=== PATIENT | female | born 1950 | race Caucasian/White ===

== ENCOUNTER → 2016-07-07 | Outpatient (CLI) | payer MEDICARE | LOC: WI 13:12 | PROVIDERS: ATTEND Physician Assistant | DX: Z12.31 Encounter for screening mammogram for malignant neoplasm of breast (principal); Z78.0 Asymptomatic menopausal state | CPT/HCPCS: 77080; G0202; 77067 ==

== ENCOUNTER → 2016-11-08 | Outpatient (CLI) | payer MEDICARE ==
--- NOTE | 2016-11-08 14:13 | RADIOLOGY REPORT (SQ) ---
EXAM DESCRIPTION: MRI LUMBAR SPINE WITHOUT COMPLETED DATE/TIME: 11/08/2016 1:27 pm REASON FOR STUDY: CHRONIC BILATERAL LOW BACK PAIN W/O SCIATICA (M54.5) M54.5 LOW BACK PAIN COMPARISON: None. TECHNIQUE: Sagittal and Axial imaging includes T1, T2, STIR and gradient echo sequences. Coronal T2/ HASTE imaging. LIMITATIONS: None. FINDINGS: VISUALIZED UPPER ABDOMEN: Limited evaluation. No acute or suspicious findings suggested. SEGMENTATION: No transitional anatomy. The lowest well-developed disc space is labeled L5-S1. ALIGNMENT: Anatomic. VERTEBRAE: Intact. BONE MARROW: Normal. No marrow replacement or reactive changes. DISC SIGNAL: Desiccation L4-5. POSTERIOR ELEMENTS: Intact. HARDWARE: None in the spine. CORD AND CONUS: Normal in size and signal intensity. Conus at the appropriate level. SOFT TISSUES: No aortic aneurysm seen. No bulky retroperitoneal adenopathy or mass. No paraspinal mas s or fluid. L1-L2: No significant spinal stenosis or exit foraminal stenosis. L2-L3: No significant spinal stenosis or exit foraminal stenosis. L3-L4: Facet arthropathy. No significant spinal stenosis or exit foraminal stenosis. L4-L5: Central annular fissure. Facet arthropathy. No significant spinal stenosis or exit foraminal stenosis. L5-S1: No significant spinal stenosis or exit foraminal stenosis. LOWER THORACIC: Incompletely imaged. No stenosis seen. SACRUM: Visualized upper sacrum intact. OTHER: No other significant findings. IMPRESSION: Facet arthropathy. Annular fissure L4-5. TECHNICAL DOCUMENTATION: JOB ID: [id number] [employer]- All Rights Reserved
== END ==
LOC: RAD 12:34
PROVIDERS: ATTEND Physician Assistant
DX: M54.5 Low back pain (principal)
CPT/HCPCS: 72148

== ENCOUNTER 2017-03-18 13:07 | Emergency (ER) | payer MEDICARE ==
[2017-03-18] MEDS ORDERED: LORAZEPAM INJ 2 MG/1 ML VIAL IV ONE (13:52)
[2017-03-18 14:11] LABS: ABSOLUTE BASOPHILS # (AUTO) 0.1 10^3/uL (0.0-0.2); ABSOLUTE EOSINOPHILS # (AUTO) 0.1 10^3/uL (0.0-0.6); ABSOLUTE LYMPHOCYTES (AUTO) 1.4 10^3/uL (0.5-4.7); ABSOLUTE MONOCYTES (AUTO) 0.7 10^3/uL (0.1-1.4); ABSOLUTE NEUT (AUTO) 8.8 10^3/uL (1.7-8.2); BASOPHILS % (AUTO) 0.8 % (0-2); HEMATOCRIT 40.9 % (36.0-47.0); HEMOGLOBIN 13.9 g/dL (12.0-15.5); HGB HCT DIFFERENCE 0.8; LYMPHOCYTES % (AUTO) 12.6 % (13-45); MEAN CORPUSCULAR HEMOGLOBIN 33.4 pg (27.0-33.4); MEAN CORPUSCULAR HGB CONC 34.1 g/dL (32.0-36.0); MEAN CORPUSCULAR VOLUME 98 fl (80-97); MONOCYTES % (AUTO) 6.5 % (3-13); RED BLOOD COUNT 4.18 10^6/uL (3.72-5.28); SEGMENTED NEUTROPHILS % (AUTO) 79.1 % (42-78); WHITE BLOOD COUNT 11.1 10^3/uL (4.0-10.5)
[2017-03-18 14:44] LABS: ALANINE AMINOTRANSFERASE 15 U/L (9-52); ALKALINE PHOSPHATASE 73 U/L (38-126); ANION GAP 9 (5-19); ASPARTATE AMINO TRANSFERASE 22 U/L (14-36); BILIRUBIN,DIRECT 0.4 mg/dL (0.0-0.4); BILIRUBIN,TOTAL 0.4 mg/dL (0.2-1.3); BLOOD UREA NITROGEN 12 mg/dL (7-20); CALCIUM 9.9 mg/dL (8.4-10.2); CARBON DIOXIDE 29 mmol/L (22-30); CHLORIDE 103 mmol/L (98-107); CREATININE RESULT 0.95 mg/dL (0.52-1.25); GLUCOSE 102 mg/dL (75-110); POTASSIUM 3.9 mmol/L (3.6-5.0); SODIUM 140.9 mmol/L (137-145); TOTAL PROTEIN 6.7 g/dL (6.3-8.2)
--- NOTE | 2017-03-18 15:44 | XCELERA REPORT ---
[address] [address] Lower Extremity Venous Evaluation Name: ELVIN DIAS Age: 66 yrs Gender: Female : 1950 Patient Status: Emergency Patient Location: ER Study Date: 03/18/2017 02:07 PM Procedure: Color flow and duplex imaging bilaterally of the veins of the lower extremities as well as the Common Femoral veins. Reason For Study: lower extremity pain Ordering Physician: FAZAL PAT Performed By: Rox Kaur Right Sided Venous Evaluation Normal vessel filling wall to wall, compression and augmentation as well as Colour flow down to the infrageniculate veins. Left Sided Venous Evaluation Normal vessel filling wall to wall, compression and augmentation as well as Colour flow down to the infrageniculate veins. Interpretation Summary No duplex evidence of DVT or obstruction in the bilateral lower extremities. : FAZAL PAT > Adolph Srivastava
--- NOTE | 2017-03-18 16:04 | RADIOLOGY REPORT (SQ) ---
EXAM DESCRIPTION: CTA CHEST COMPLETED DATE/TIME: 03/18/2017 3:36 pm REASON FOR STUDY: sob R60.0 LOCALIZED EDEMA COMPARISON: None. TECHNIQUE: CT scan of the chest performed using helical scanning technique with dynamic intravenous contrast injection. Images reviewed with lung, soft tissue and bone windows. Reconstructed coronal and sagittal MPR images reviewed. Additional 3 dimensional post-processing performed to develop Maximal Intensity Projection images (ID P). All images stored on PACS. All CT scanners at this facility use dose modulation, iterative reconstruction, and/or weight based d osing when appropriate to reduce radiation dose to as low as reasonably achievable (ALARA). [facility]: Dose Right [facility]: CareDose [facility]: Dose Right [facility]: Teradose 4D [facility]: H[place] CONTRAST TYPE AND DOSE: contrast/concentration: Isovue 370.00 mg/ml; Total Contrast Delivered: 83.3 ml; Total Saline Delivered: 65.0 ml Contrast bolus adequate for pulmonary arteries and aorta. RENAL FUNCTION: Creatinine 0.95 RADIATION DOSE: CT Rad equipment meets quality standard of care and radiation dose reduction techniq ues were employed. CTDIvol: 9.9 - 22.0 mGy. DLP: 766 mGy-cm. . LIMITATIONS: None. FINDINGS: LUNGS AND PLEURA: Obstructive lung disease with enlarged airspaces. No acute infiltrates. No pleural effusion. No pneumothorax. No worrisome pulmonary nodules. AORTA AND GREAT VESSELS: No aneurysm. Contrast bolus not optimized for the aorta. HEART: No pericardial effusion. No significant coronary artery calcifications. PULMONARY ARTERIES: No emboli visualized in the main pulmonary arteries or the segmental branches. HILAR AND MEDIASTINAL STRUCTURES: No identified masses or abnormal nodes. HARDWARE: None in the chest. UPPER ABDOMEN: No significant findings. Limited exam. THYROID AND OTHER SOFT TISSUES: No masses. No adenopathy. BONES: No acute or significant finding. 3D MIPS: Confirm above findings. OTHER: No other significant finding. IMPRESSION: No CT angio evidence of acute pulmonary emboli or thoracic aortic dissection. Obstructive lung disease COMMENT: Quality ID # [id number]: Final reports with documentation of one or more dose reduction techniques (e.g., Automated exposure control, adjustment of the mA and/or kV according to patient size, use of iterative reconstruction technique) TECHNICAL DOCUMENTATION: JOB ID: [id number] [employer]- All Rights Reserved
--- NOTE | 2017-03-18 16:30 | ER Document Report ---
ED General - General Chief Complaint: Chest Pain Time Seen by Provider: 03/18/17 13:32 Mode of Arrival: Wheelchair Information source: Patient Notes: 66-year-old female history of anxiety who has had leg swelling and cramping presents with complaints of sudden shortness of breath and chest pain. Patient noted to be hyperventilating while she is waiting to have outpatient ultrasound performed. Patient was brought back to the emergency department for evaluation Patient denies any actual chest pain meds that she is quite anxious did not bring her [employer] TRAVEL OUTSIDE OF THE [place] IN LAST 30 DAYS: No - HPI Onset: Just prior to arrival Onset/Duration: Sudden Quality of pain: No pain Severity: Mild Pain Level: 1 Associated symptoms: Shortness of breath Exacerbated by: Denies Relieved by: Denies Similar symptoms previously: No Recently seen / treated by doctor: Yes - Related Data Allergies/Adverse Reactions: aspirin [Aspirin] Allergy (Severe, Verified 12/31/13 11:30) UNCONTROLLED MUSCLE SPASMS, NIGHTMARES adenosine [Adenosine] Allergy (Verified 12/31/13 11:30) Respiratory arrest Past Medical History - Social History Smoking Status: Current Every Day Smoker Cigarette use (# per day): Yes Chew tobacco use (# tins/day): No Smoking Education Provided: No Frequency of alcohol use: None Drug Abuse: None Family History: Reviewed & Not Pertinent Patient has suicidal ideation: No Patient has homicidal ideation: No - Past Medical History Cardiac Medical History: Denies: Hx Coronary Artery Disease, Hx Heart Attack, Hx Hypertension - UNDER CONTROL, NO LONGER ON MEDICATION Pulmonary Medical History: Reports: Hx Pneumonia - 10 YRS AGO Denies: Hx Asthma, Hx Bronchitis, Hx COPD Neurological Medical History: Denies: Hx Cerebrovascular Accident - PATIENT UNSURE, MRI POSSIBLY SHOWING MINI STROKES, Hx Seizures Endocrine Medical History: Reports: Hx Diabetes Mellitus Type 2 Renal/ Medical History: Denies: Hx Peritoneal Dialysis GI Medical History: Reports: Hx Gastroesophageal Reflux Disease Musculoskeltal Medical History: Reports Hx Arthritis - KNEES, MUCH IMPROVED WITH WEIGHT LOSS Psychiatric Medical History: Reports: Hx Depression Past Surgical History: Reports: Hx Hysterectomy, Hx Nose Surgery. Denies: Hx Pacemaker - Immunizations Hx Diphtheria, Pertussis, Tetanus Vaccination: Yes Hx Pneumococcal Vaccination: 03/28/11 Review of Systems - Review of Systems Notes: REVIEW OF SYSTEMS: CONSTITUTIONAL : Denies fever, chills, or sweats. Denies recent illness. EENT: Denies eye, ear, throat, or mouth pain or symptoms. Denies nasal or sinus congestion or discharge. Denies throat, tongue, or mouth swelling or difficulty swallowing. CARDIOVASCULAR: Denies chest pain. Denies palpitations or racing or irregular heart beat. Denies ankle edema. RESPIRATORY: Admits shortness of breath GASTROINTESTINAL: Denies abdominal pain or distention. Denies nausea, vomiting , or diarrhea. Denies blood in vomitus, stools, or per rectum. Denies black, tarry stools. Denies constipation. GENITOURINARY: Denies difficulty urinating, painful urination, burning, frequency, blood in urine, or discharge. FEMALE GENITOURINARY: Denies vaginal bleeding, heavy or abnormal periods, irregular periods. Denies vaginal discharge or odor. MUSCULOSKELETAL: Denies back or neck pain or stiffness. Denies joint pain or swelling. SKIN: Denies rash, lesions or sores. HEMATOLOGIC : Denies easy bruising or bleeding. LYMPHATIC: Denies swollen, enlarged glands. NEUROLOGICAL: Denies confusion or altered mental status. Denies passing out or loss of consciousness. Denies dizziness or lightheadedness. Denies headache. Denies weakness or paralysis or loss of use of either side. Denies problems with gait or speech. Denies sensory loss, numbness, or tingling. Denies seizures. PSYCHIATRIC: Denies anxiety or stress. Denies depression, suicidal ideation, or homicidal ideation. ALL OTHER SYSTEMS REVIEWED AND NEGATIVE. PHYSICAL EXAMINATION: GENERAL: Well-appearing, well-nourished and in no acute distress. HEAD: Atraumatic, normocephalic. EYES: Pupils equal round and reactive to light, extraocular movements intact, conjunctiva are normal. ENT: Nares patent, oropharynx clear without exudates. Moist mucous membranes. NECK: Normal range of motion, supple without lymphadenopathy LUNGS: Breath sounds clear to auscultation bilaterally and equal. No wheezes rales or rhonchi. HEART: Regular rate and rhythm without murmurs ABDOMEN: Soft, nontender, nondistended abdomen. No guarding, no rebound. No masses appreciated. Female : deferred Musculoskeletal: Normal range of motion, no pitting or edema. No cyanosis. NEUROLOGICAL: Cranial nerves grossly intact. Normal speech, normal gait. Normal sensory, motor exams PSYCH: N very anxious SKIN: Warm, Dry, normal turgor, no rashes or lesions noted. Dictation was performed using [employer] voice recognition software Physical Exam - Vital signs Vitals: Resp 22 H 03/18/17 13:32 Course - Re-evaluation Re-evalutation: 03/18/17 16:29 Patient's presentation is consistent with a panic attack, she was given medication and symptoms completely resolved. She states she feels much better, nonetheless Doppler was performed as well as a CTA of the chest and both were negative. I do not believe there is any life-threatening issues I had a long discussion with the patient multiple times and she feels much better wishes to be discharged home very strict return precautions have been provided and I discussed this with family as well After performing a Medical Screening Examination, I estimate there is LOW risk for RUPTURED ESOPHAGUS, PNEUMOTHORAX, PULMONARY EMBOLISM, ACUTE CORONARY SYNDROME, OR THORACIC AORTIC DISSECTION, thus I consider the discharge disposition reasonable. I have reevaluated this patient multiple times and no significant life threatening changes are noted. The patient and I have discussed the diagnosis and risks, and we agree with discharging home with close follow-up. We also discussed returning to the Emergency Department immediately if new or worsening symptoms occur. We have discussed the symptoms which are most concerning (e.g., bloody sputum, worsening pain or shortness of breath) that necessitate immediate return. - Vital Signs Vital signs: Temp Pulse Resp BP Pulse Ox 98.2 F 21 H 118/58 L 96 03/18/17 13:35 03/18/17 13:35 03/18/17 13:35 03/18/17 13:35 - Laboratory Result Diagrams: 03/18/17 13:35 03/18/17 13:35 Laboratory results interpreted by me: 03/18/17 03/18/17 13:35 13:35 WBC 11.1 H MCV 98 H RDW 15.0 H Seg Neutrophils % 79.1 H Lymphocytes % 12.6 L Absolute Neutrophils 8.8 H Est GFR (Non-Af Amer) 59 L - Diagnostic Test Radiology reviewed: Image reviewed, Reports reviewed Discharge - Discharge Clinical Impression: Panic attack, Peripheral edema Leg pain Qualifiers: Laterality: left Qualified Code(s): M79.605 - Pain in left leg Condition: Stable Disposition: HOME, SELF-CARE Instructions: Chest Pain of Unclear Cause ([facility]) Referrals: BUNDLE,JEREMIAS, PA-C [Primary Care Provider] - Follow up as needed
[2017-03-18 16:58] VITALS: BP 110/65
[2017-03-18 20:00] LABS: CREATINE KINASE MB 0.25 ng/mL (<4.55)
[2017-03-18 20:01] LABS: TROPONIN I < 0.012 ng/mL
--- NOTE | 2017-03-19 07:54 | EKG REPORT ---
SEVERITY:- OTHERWISE NORMAL ECG - SINUS ARRHYTHMIA, RATE 56-82 : Confirmed by: Bret Phipps MD 19-Mar-2017 07:53:04
== END 2017-03-18 16:50 | disposition home or self-care (01) ==
LOC: SP 13:07 → ER 16:50
DX: F41.0 Panic disorder [episodic paroxysmal anxiety] (principal); R60.0 Localized edema; M79.605 Pain in left leg; R07.9 Chest pain, unspecified; F41.9 Anxiety disorder, unspecified; M79.89 Other specified soft tissue disorders; R06.02 Shortness of breath; F17.210 Nicotine dependence, cigarettes, uncomplicated
CPT/HCPCS: 93005; 99285; 96374; 36415; 82553; 82550; 85025; 80053; 84484; 93970 ×2; 71275; 93010; J2060

== ENCOUNTER → 2017-10-17 | Outpatient (CLI) | payer MEDICARE, MEDICAID ==
--- NOTE | 2017-10-17 15:58 | RADIOLOGY REPORT (SQ) ---
EXAM DESCRIPTION: KUB/ABDOMEN (SINGLE VIEW) COMPLETED DATE/TIME: 10/17/2017 3:41 pm REASON FOR STUDY: K59.00 CONSTIPATION, UNSPECIFIED K59.00 CONSTIPATION, UNSPECIFIED COMPARISON: None. NUMBER OF VIEWS: One view. TECHNIQUE: Supine radiographic image of the abdomen acquired. LIMITATIONS: None. FINDINGS: BOWEL GAS PATTERN: Normal bowel gas pattern. No dilated loops. Moderate colonic and recta l fecal burden. CALCIFICATIONS: No suspicious calcifications. SOFT TISSUES: No gross mass or suggestion of organomegaly. HARDWARE: None in the abdomen. BONES: No acute fracture. No worrisome bone lesions. OTHER: No other significant finding. IMPRESSION: NO RADIOGRAPHIC EVIDENCE FOR ACUTE ABDOMINAL DISEASE. Moderate colonic and rectal fecal burden. TECHNICAL DOCUMENTATION: JOB ID: [id number] [employer]- All Rights Reserved Reading location - IP/workstation name: [email or web address]
--- NOTE | 2017-10-17 17:24 | RADIOLOGY REPORT (SQ) ---
EXAM DESCRIPTION: CHEST 2 VIEWS COMPLETED DATE/TIME: 10/17/2017 5:11 pm REASON FOR STUDY: COUGH COMPARISON: None. EXAM PARAMETERS: NUMBER OF VIEWS: two views TECHNIQUE: Digital Frontal and Lateral radiographic views of the chest acquired. RADIATION DOSE: NA LIMITATIONS: none FINDINGS: LUNGS AND PLEURA: No opacities, masses or pneumothorax. No pleural effusion. MEDIASTINUM AND HILAR STRUCTURES: No masses or contour abnormalities. HEART AND VASCULAR STRUCTURES: Heart normal size. No evidence for failure. BONES: No acute findings. HARDWARE: None in the chest. OTHER: No other significant finding. IMPRESSION: NO ACUTE RADIOGRAPHIC FINDING IN THE CHEST. TECHNICAL DOCUMENTATION: JOB ID: [id number] [employer]- All Rights Reserved Reading location - IP/workstation name: [email or web address]
== END ==
LOC: RAD 15:23
PROVIDERS: ATTEND Physician Assistant
DX: K59.00 Constipation, unspecified (principal); R05 Cough
CPT/HCPCS: 71046; 74018

== ENCOUNTER 2018-07-13 20:24 | Emergency (ER) | payer MEDICARE ==
[2018-07-13 21:02] VITALS: BP 116/73
== END 2018-07-13 22:20 | disposition left against medical advice (07) ==
LOC: ER 20:24
DX: Z53.21 Procedure and treatment not carried out due to patient leaving prior to being seen by health care provider (principal); M54.9 Dorsalgia, unspecified

== ENCOUNTER → 2018-12-26 | Outpatient (CLI) | payer MEDICARE, MEDICAID ==
--- NOTE | 2018-12-26 11:06 | RADIOLOGY REPORT (SQ) ---
EXAM DESCRIPTION: CT ABD/PELVIS WITH IV ORAL COMPLETED DATE/TIME: 12/26/2018 9:26 am REASON FOR STUDY: R10.84 GENERALIZED ABDOMINAL PAIN R10.84 GENERALIZED ABDOMINAL PAIN COMPARISON: CT of the abdomen pelvis with contrast from 01/10/2014 TECHNIQUE: CT scan of the abdomen and pelvis performed using helical scanning technique with dynamic intravenous contrast injection. No oral contrast. Images reviewed with lung, soft tissue, and bone windows. Reconstructed coronal and sagittal MPR images reviewed. Delayed images for evaluation of the urinary system also acquired. All images stored on PACS. All CT scanners at this facility use dose modulation, iterative reconstruction, and/or weight based d osing when appropriate to reduce radiation dose to as low as reasonably achievable (ALARA). [facility]: Dose Right [facility]: CareDose [facility]: Dose Right [facility]: Teradose 4D [facility]: REM ENTERPRISE CONTRAST TYPE AND DOSE: contrast/concentration: Isovue 350.00 mg/ml; Total Contrast Delivered: 95.0 ml; Total Saline Delivered: 71.0 ml RENAL FUNCTION: Creatinine 1.1 milligrams/deciliter. RADIATION DOSE: CT Rad equipment meets quality standard of care and radiation dose reduction techniq ues were employed. CTDIvol: 9.8 - 11.4 mGy. DLP: 1052 mGy-cm.. LIMITATIONS: None. FINDINGS: LOWER CHEST: No basilar consolidation, pleural effusion or nodule. No cardiomegaly or per icardial effusion. LIVER: The liver morphology is non cirrhotic. The portal and hepatic veins are patent. There is no hepatic mass. SPLEEN: There is no splenomegaly. PANCREAS: There is no abnormality of the pancreas. GALLBLADDER: No abnormality that is apparent on CT. ADRENAL GLANDS: No mass or focal asymmetry. RIGHT KIDNEY AND URETER: No solid masses, hydronephrosis, nephrolithiasis, hydroureter or ureterolith iasis. LEFT KIDNEY AND URETER: 2 mm calculus within an upper pole calyx. No solid masses, hydronephrosis, h ydroureter or ureterolithiasis. AORTA AND VESSELS: Mild atherosclerotic calcification of the abdominal aorta without aneurysmal dilat ation. The celiac, SMA, and renal arteries are patent. RETROPERITONEUM: No retroperitoneal adenopathy, hemorrhage or mass. BOWEL AND PERITONEAL CAVITY: No evidence of obstruction, bowel wall thickening, or pericolonic/ perie nteric inflammation. No mesenteric adenopathy, free intraperitoneal fluid, or mesenteric/peritoneal mass. APPENDIX: Unable to identify the appendix but there is no pericecal inflammation to suggest an acute appendicitis. PELVIS: The uterus is surgically absent. There is no adnexal mass. Urinary bladder is distended and normal in appearance. There is no pelvic adenopathy or free fluid. ABDOMINAL WALL: There is no abdominal wall mass or sizable hernia. BONES: No acute findings. OTHER: No other finding. IMPRESSION: 1. No acute intra-abdominal abnormality. 2. 2 mm caliceal calculus within a left upper pole calyx. TECHNICAL DOCUMENTATION: JOB ID: [id number] Quality ID # [id number]: Final reports with documentation of one or more dose reduction techniques (e.g., Au tomated exposure control, adjustment of the mA and/or kV according to patient size, use of iterative reconstruction technique) 2010 [employer]- All Rights Reserved Reading location - IP/workstation name: [email or web address]
== END ==
LOC: RAD 08:46
PROVIDERS: ATTEND Physician Assistant
DX: R10.84 Generalized abdominal pain (principal)
CPT/HCPCS: 74177; 82565

== ENCOUNTER 2019-01-03 14:33 | Emergency (ER) | payer MEDICARE, MEDICAID ==
[2019-01-03] MEDS ORDERED: HYDROCODONE/ACETAMINOPHEN 5-325 MG TABLET PO ONE (15:12)
--- NOTE | 2019-01-03 15:12 | ER Document Report ---
ED Medical Screen (RME) - General Chief Complaint: Back Pain Stated Complaint: FELL BACK/NECK PAIN Time Seen by Provider: 01/03/19 14:57 Primary Care Provider: JEREMIAS ADAMS PA-C [Primary Care Provider] - Follow up as needed Notes: Patient is a 68-year-old female presents emergency department with a chief complaint of back pain. She states that at about a week ago she possibly rolled out of her bed and hurt her back. She has chronic back problems. She also does get epidurals to help with her pain. This morning the pain was worse and her medications are not working. Exam: Very tender cervical and lumbar spine. I have greeted and performed a rapid initial assessment of this patient. A comprehensive ED assessment and evaluation of the patient, analysis of test results and completion of medical decision making process will be conducted by an additional ED providers. TRAVEL OUTSIDE OF THE [place] IN LAST 30 DAYS: No - Related Data Allergies/Adverse Reactions: aspirin [Aspirin] Allergy (Severe, Verified 01/03/19 14:55) UNCONTROLLED MUSCLE SPASMS, NIGHTMARES adenosine [Adenosine] Allergy (Verified 01/03/19 14:55) Respiratory arrest Past Medical History - Social History Chew tobacco use (# tins/day): No Frequency of alcohol use: None Drug Abuse: None - Past Medical History Cardiac Medical History: Denies: Hx Coronary Artery Disease, Hx Heart Attack, Hx Hypertension - UNDER CONTROL, NO LONGER ON MEDICATION Pulmonary Medical History: Reports: Hx Pneumonia - 10 YRS AGO Denies: Hx Asthma, Hx Bronchitis, Hx COPD Neurological Medical History: Denies: Hx Cerebrovascular Accident - PATIENT UNSURE, MRI POSSIBLY SHOWING MINI STROKES, Hx Seizures Endocrine Medical History: Reports: Hx Diabetes Mellitus Type 2 Renal/ Medical History: Denies: Hx Peritoneal Dialysis GI Medical History: Reports: Hx Gastroesophageal Reflux Disease Musculoskeltal Medical History: Reports Hx Arthritis - KNEES, MUCH IMPROVED WITH WEIGHT LOSS Psychiatric Medical History: Reports: Hx Depression Past Surgical History: Reports: Hx Hysterectomy, Hx Nose Surgery. Denies: Hx Pacemaker - Immunizations Hx Diphtheria, Pertussis, Tetanus Vaccination: Yes Physical Exam - Vital signs Vitals: Temp Pulse Resp BP Pulse Ox 98.2 F 62 20 155/70 H 96 01/03/19 14:44 01/03/19 14:44 01/03/19 14:44 01/03/19 14:44 01/03/19 14:44 Course - Vital Signs Vital signs: Temp Pulse Resp BP Pulse Ox 98.2 F 62 20 155/70 H 96 01/03/19 14:44 01/03/19 14:44 01/03/19 14:44 01/03/19 14:44 01/03/19 14:44 Doctor's Discharge - Discharge Referrals: JEREMIAS ADAMS PA-C [Primary Care Provider] - Follow up as needed
[2019-01-03 16:10] LABS: ABSOLUTE BASOPHILS # (AUTO) 0.1 10^3/uL (0.0-0.2); ABSOLUTE EOSINOPHILS # (AUTO) 0.2 10^3/uL (0.0-0.6); ABSOLUTE LYMPHOCYTES (AUTO) 1.8 10^3/uL (0.5-4.7); ABSOLUTE MONOCYTES (AUTO) 0.7 10^3/uL (0.1-1.4); TOTAL CELLS COUNTED % (AUTO) 100 %
[2019-01-03 16:17] LABS: APPEARANCE,URINE CLEAR; BILIRUBIN,URINE NEGATIVE (NEGATIVE); COLOR,URINE STRAW; GLUCOSE, URINE NEGATIVE (NEGATIVE); KETONES,URINE NEGATIVE (NEGATIVE); LEUKOCYTE ESTERASE,URINE NEGATIVE (NEGATIVE); NITRITE,URINE NEGATIVE (NEGATIVE); PROTEIN,URINE NEGATIVE (NEGATIVE); URINE SPECIFIC GRAVITY 1.003; UROBILINOGEN,URINE NEGATIVE mg/dL (<2.0)
[2019-01-03 16:21] LABS: ABSOLUTE NEUT (AUTO) 4.1 10^3/uL (1.7-8.2); EOSINOPHILS % (AUTO) 3.2 % (0-6); HEMATOCRIT 41.2 % (36.0-47.0); LYMPHOCYTES % (AUTO) 25.8 % (13-45); MEAN CORPUSCULAR HEMOGLOBIN 33.2 pg (27.0-33.4); MEAN CORPUSCULAR VOLUME 98 fl (80-97); MONOCYTES % (AUTO) 10.4 % (3-13); PLATELET COUNT 232 10^3/uL (150-450); RED BLOOD COUNT 4.22 10^6/uL (3.72-5.28); RED CELL DISTRIBUTION WIDTH 14.3 % (11.5-14.0); SEGMENTED NEUTROPHILS % (AUTO) 59.6 % (42-78)
[2019-01-03 16:45] LABS: ALBUMIN 4.1 g/dL (3.5-5.0); ALKALINE PHOSPHATASE 85 U/L (38-126); ANION GAP 6 (5-19); ASPARTATE AMINO TRANSFERASE 24 U/L (14-36); BILIRUBIN,DIRECT 0.2 mg/dL (0.0-0.4); BILIRUBIN,TOTAL 0.5 mg/dL (0.2-1.3); BLOOD UREA NITROGEN 10 mg/dL (7-20); CALCIUM 9.8 mg/dL (8.4-10.2); CARBON DIOXIDE 31 mmol/L (22-30); CHLORIDE 102 mmol/L (98-107); GLUCOSE 89 mg/dL (75-110); POTASSIUM 4.4 mmol/L (3.6-5.0); TOTAL PROTEIN 7.1 g/dL (6.3-8.2)
[2019-01-03] MEDS ORDERED: HYDROCODONE/ACETAMINOPHEN 5-325 MG TABLET ONE (19:25)
[2019-01-03] MEDS ORDERED: ONDANSETRON 4 MG TAB.RAPDIS PO ONE (21:25)
[2019-01-03] MEDS ORDERED: OXYCODONE-ACETAMINOPHEN 5-325 MG TABLET PO ONE (21:25)
--- NOTE | 2019-01-03 21:27 | ER Document Report ---
ED Fall - General Chief Complaint: Back Pain Stated Complaint: FELL BACK/NECK PAIN Time Seen by Provider: 01/03/19 14:57 Primary Care Provider: [facility] [Provider Group] - Follow up as needed JEREMIAS ADAMS PA-C [Primary Care Provider] - Follow up in 3-5 days Notes: Patient is a 68-year-old female that comes emergency department for chief complaint of pain in her back and her left hip. She states that almost a week ago she rolled out of bed and landed on her left hip and on her back, she states she has had severe pain since that time, she states she thinks she "cracked something". She does have chronic back pain and has had 3 recent steroid injections along with a recent referral to spinal surgery which is pending. She is on naproxen and baclofen for this. She denies incontinence, numbness, fever/chills, abdominal pain, chest pain. She is not on a blood thinner. She denies headache. TRAVEL OUTSIDE OF THE [place] IN LAST 30 DAYS: No - Related data Allergies/Adverse Reactions: aspirin [Aspirin] Allergy (Severe, Verified 01/03/19 14:55) UNCONTROLLED MUSCLE SPASMS, NIGHTMARES adenosine [Adenosine] Allergy (Verified 01/03/19 14:55) Respiratory arrest Past Medical History - General Information source: Patient - Social History Smoking Status: Current Every Day Smoker Chew tobacco use (# tins/day): No Frequency of alcohol use: None Drug Abuse: None Lives with: Family Family History: Reviewed & Not Pertinent Patient has suicidal ideation: No Patient has homicidal ideation: No - Past Medical History Cardiac Medical History: Denies: Hx Coronary Artery Disease, Hx Heart Attack, Hx Hypertension - UNDER CONTROL, NO LONGER ON MEDICATION Pulmonary Medical History: Reports: Hx Pneumonia - 10 YRS AGO Denies: Hx Asthma, Hx Bronchitis, Hx COPD Neurological Medical History: Denies: Hx Cerebrovascular Accident - PATIENT UNSURE, MRI POSSIBLY SHOWING MINI STROKES, Hx Seizures Endocrine Medical History: Reports: Hx Diabetes Mellitus Type 2 Renal/ Medical History: Denies: Hx Peritoneal Dialysis GI Medical History: Reports: Hx Gastroesophageal Reflux Disease Musculoskeletal Medical History: Reports Hx Arthritis - KNEES, MUCH IMPROVED WITH WEIGHT LOSS Psychiatric Medical History: Reports: Hx Depression Past Surgical History: Reports: Hx Hysterectomy, Hx Nose Surgery. Denies: Hx Pacemaker - Immunizations Hx Diphtheria, Pertussis, Tetanus Vaccination: Yes Hx Pneumococcal Vaccination: 03/28/11 Review of Systems - Review of Systems Constitutional: No symptoms reported EENT: No symptoms reported Cardiovascular: No symptoms reported Respiratory: No symptoms reported Gastrointestinal: No symptoms reported Genitourinary: No symptoms reported Female Genitourinary: No symptoms reported Musculoskeletal: See HPI Skin: No symptoms reported Hematologic/Lymphatic: No symptoms reported Neurological/Psychological: No symptoms reported Physical Exam - Vital signs Vitals: Temp Pulse Resp BP Pulse Ox 98.2 F 62 20 155/70 H 96 01/03/19 14:44 01/03/19 14:44 01/03/19 14:44 01/03/19 14:44 01/03/19 14:44 - Notes Notes: GENERAL: Alert, interacts well. No acute distress. HEAD: Normocephalic, atraumatic. EYES: Pupils equal, round, and reactive to light. Extraocular movements intact. ENT: Oral mucosa moist, tongue midline. Oropharynx unremarkable. Airway patent. NECK: Full range of motion. Supple. Trachea midline. LUNGS: Clear to auscultation bilaterally, no wheezes, rales, or rhonchi. No respiratory distress. HEART: Regular rate and rhythm. No murmur ABDOMEN: Soft, non-tender. Non-distended. Bowel sounds present in all 4 quadrants. GENITOURINARY: Deferred EXTREMITIES: Moves all 4 extremities spontaneously. Pain with palpation over the left hip and proximal femur. No deformity, erythema, or swelling. No edema, normal radial and dorsalis pedis pulses bilaterally. No cyanosis. BACK: Tender with gentle palpation of the lumbar area and general over the cervical area but no signs of trauma. No saddle anesthesia, normal distal neurovascular exam. Moves all extremities in full range of motion. NEUROLOGICAL: Alert and oriented x3. Normal speech. Cranial nerves II through XII grossly intact. PSYCH: Normal affect, normal mood. SKIN: Warm, dry, normal turgor. No rashes or lesions noted. Course - Re-evaluation Re-evalutation: Patient moves with some discomfort, has tenderness over the left hip, lumbar spine, and cervical spine. No signs of trauma. I did review CBC, chemistry, urinalysis and this was nonspecific. Because of patient's fall CAT scan of the lumbar and cervical areas were performed along with x-rays of the left hip. These were all negative. Discussed with patient. She still has pain with movement and has difficulty getting comfortable, she is requesting for additional assistance in addition to her baclofen and naproxen. She already has spinal surgery referral. She has no neurological deficits. She has no fever. She is not toxic in appearance. She does not have a history of IV drug abuse. Patient will be provided with small amount of pain management, referred to pain management, and she will follow-up with her spinal surgery referral. Patient and family member state appreciation and agreement. - Vital Signs Vital signs: Temp Pulse Resp BP Pulse Ox 97.9 F 63 17 147/64 H 94 01/03/19 23:57 01/03/19 23:57 01/03/19 23:57 01/03/19 23:57 01/03/19 23:57 - Laboratory Result Diagrams: 01/03/19 15:58 01/03/19 15:58 Laboratory results interpreted by me: 01/03/19 01/03/19 01/03/19 15:58 15:58 15:58 MCV 98 H RDW 14.3 H Carbon Dioxide 31 H Urine Blood SMALL H Discharge - Discharge Clinical Impression: Neck pain, Left hip pain Fall Qualifiers: Encounter type: initial encounter Qualified Code(s): W19.XXXA - Unspecified fall, initial encounter Lower back pain Qualifiers: Chronicity: acute Back pain laterality: bilateral Sciatica presence: without sciatica Qualified Code(s): M54.5 - Low back pain Condition: Stable Disposition: HOME, SELF-CARE Additional Instructions: Your laboratory work-up and imaging do not show any fractures or concerning findings. This appears to be soft tissue injury only and exacerbation of your ongoing back pain and spasms. Continue your muscle relaxer and anti-inflammatory. You can apply heat to the muscles of your lower back and neck as well. You can apply ice to your hip. Follow-up closely with your spinal surgery referral. Take the pain medication only if needed as prescribed, if you do so also take a stool softener to avoid constipation. Consider the referral to pain management as well. Return if you worsen including developing numbness, inability to urinate, losing control of your bowels, fever, or any other concerning or worsening symptoms. Prescriptions: Docusate Sodium [Colace 100 mg Capsule] 100 mg PO ASDIR PRN #30 capsule PRN Reason: Oxycodone HCl/Acetaminophen [Percocet 5-325 mg Tablet] 1 - 2 tab PO TID PRN #12 tablet PRN Reason: Referrals: JEREMIAS ADAMS PA-C [Primary Care Provider] - Follow up in 3-5 days [facility] [Provider Group] - Follow up as needed
--- NOTE | 2019-01-03 22:47 | RADIOLOGY REPORT (SQ) ---
EXAM DESCRIPTION: XR HIP 2 OR MORE VIEWS COMPLETED DATE/TME: 01/03/2019 21:25 CLINICAL HISTORY: 68 years Female, fall, pain COMPARISON: None. Findings: Bones, joints, and soft tissues of the LEFT XR HIP 2 VIEWS appear intact. IMPRESSION: No acute findings.
--- NOTE | 2019-01-03 22:53 | RADIOLOGY REPORT (SQ) ---
EXAM DESCRIPTION: CT CERVICAL SPINE WITHOUT IV CONTRAST COMPLETED DATE/TME: 01/03/2019 21:26 CLINICAL HISTORY: 68 years Female, fall, pain Comparison: None. Technique: No contrast. Coronal and sagittal reformat. This exam was performed according to our departmental dose-optimization program, which includes automated exposure control, adjustment of the mA and/or kV according to patient size and/or use of iterative reconstruction technique.[facility]: Dose Right [facility]: CareDose [facility]: Dose Right [facility]: Teradose 4D [facility]: GetO2 LIMITATIONS: None Findings: Jspr-gs-wwnklpil mid cervical spondylosis, left more than right. Normal alignment. Normal curvature. No fracture. Normal vertebral heights. No significant bony spinal or foraminal canal compromise. Partially imaged nuchal soft tissues, inferior cranium, and upper thorax appear otherwise grossly intact. IMPRESSION: No acute findings.
--- NOTE | 2019-01-03 22:55 | RADIOLOGY REPORT (SQ) ---
CT LUMBAR SPINE WITHOUT IV CONTRAST EXAM DATE: 01/03/2019 9:25 PM CDT HISTORY: Fall, pain. COMPARISON: 11/08/2016 TECHNIQUE: CT scan of the lumbar spine without IV contrast. This exam was performed according to our departmental dose-optimization program, which includes automated exposure control, adjustment of the mA and/or kV according to patient size and/or use of iterative reconstruction technique. FINDINGS: No acute compression fracture is seen. The lumbar alignment is maintained. The disc spaces are preserved. There is mild facet DJD throughout the lower lumbar spine. No advanced canal stenosis is identified. The sacroiliac joints are intact. IMPRESSION: No acute lumbar fracture or subluxation.
[2019-01-03] MEDS ORDERED: HYDROCODONE/ACETAMINOPHEN 5-325 MG (6 TAB/ER DISP) PO PRN (23:32)
[2019-01-04] VITALS: BP 147/64
== END 2019-01-04 | disposition home or self-care (01) ==
LOC: ER 14:33
DX: M54.2 Cervicalgia (principal); M25.552 Pain in left hip; M54.5 Low back pain; W06.XXXA Fall from bed, initial encounter; Y92.009 Unspecified place in unspecified non-institutional (private) residence as the place of occurrence of the external cause; F17.200 Nicotine dependence, unspecified, uncomplicated; E11.9 Type 2 diabetes mellitus without complications; Z88.6 Allergy status to analgesic agent; Z90.710 Acquired absence of both cervix and uterus
CPT/HCPCS: 99284; 36415; 85025; 80053; 81001; 73502; 72125; 72131; A9270 ×4; S0119

== ENCOUNTER → 2019-12-12 | Outpatient (CLI) | payer MEDICARE ==
--- NOTE | 2019-12-12 15:22 | RADIOLOGY REPORT (SQ) ---
EXAM DESCRIPTION: KNEE LEFT 4 VIEWS IMAGES COMPLETED DATE/TIME: 12/12/2019 3:14 pm REASON FOR STUDY: PAIN IN LEFT KNEE M25.562 PAIN IN LEFT KNEE COMPARISON: None. NUMBER OF VIEWS: Four views. TECHNIQUE: AP, lateral, and both oblique radiographic images acquired of the left knee. LIMITATIONS: None. FINDINGS: MINERALIZATION: Normal. BONES: No acute fracture or dislocation. No worrisome bone lesions. JOINT: No effusion. SOFT TISSUES: No soft tissue swelling. No radio-opaque foreign body. OTHER: No other significant finding. IMPRESSION: NEGATIVE STUDY OF THE LEFT KNEE. NO RADIOGRAPHIC EVIDENCE OF ACUTE INJURY. TECHNICAL DOCUMENTATION: JOB ID: [id number] 2010 [employer]- All Rights Reserved Reading location - IP/workstation name: [email or web address]
== END ==
LOC: OD 14:55
PROVIDERS: ATTEND Nurse Practitioner Family
DX: M25.562 Pain in left knee (principal)

== ENCOUNTER → 2020-02-20 | Outpatient (CLI) | payer MEDICARE, MEDICAID ==
--- NOTE | 2020-02-20 14:56 | WOMENS IMAGING REPORT ---
EXAM DESCRIPTION: 3D SCREENING MAMMO BILAT IMAGES COMPLETED DATE/TIME: 02/20/2020 2:28 pm REASON FOR STUDY: ENCNTR SCREEN MAMMOGRAM FOR MALIGNANT NEOPLASM OF BREAST Z12.31 ENCNTR SCREEN MEL MOGRAM FOR MALIGNANT NEOPLASM OF DARYN COMPARISON: Priors back to 2009 EXAM PARAMETERS: Views: Standard craniocaudal and mediolateral oblique views of each breast recorded using digital acquisition and breast tomosynthesis. Read with the assistance of CAD. .[facility] - Events Core Auger Machine [employer]arer Version 9.2 LIMITATIONS: None. FINDINGS: No suspicious masses, suspicious calcifications or architectural distortion. No areas of c oncern. IMPRESSION: NEGATIVE MAMMOGRAM. BIRADS 1. BREAST DENSITY: b. There are scattered areas of fibroglandular density. BIRAD: ASSESSMENT: 1 NEGATIVE RECOMMENDATION: ROUTINE SCREENING COMMENT: The patient has been notified of the results by letter per MQSA requirements. Additional no tification policies are in place for contacting patient with suspicious or incomplete findings. Quality ID #[id number]: The [employer] recommends an annual screening mammogram for women aged 40 years or over. This facility utilizes a reminder system to ensure that all patients receive reminder letters, and/or direct phone calls for appointments. This includes reminders for routine scr eening mammograms, diagnostic mammograms, or other Breast Imaging Interventions when appropriate. Th is patient will be placed in the appropriate reminder system. TECHNICAL DOCUMENTATION: FINDING NUMBER: (1) ASSESSMENT: (1) JOB ID: [id number] 2010 [employer] All Rights Reserved Reading location - IP/workstation name: [email or web address]
--- NOTE | 2020-02-20 15:01 | RADIOLOGY REPORT (SQ) ---
EXAM DESCRIPTION: CHEST 2 VIEWS IMAGES COMPLETED DATE/TIME: 02/20/2020 2:51 pm REASON FOR STUDY: R05 COUGH COMPARISON: 10/17/2017 EXAM PARAMETERS: NUMBER OF VIEWS: two views TECHNIQUE: Digital Frontal and Lateral radiographic views of the chest acquired. RADIATION DOSE: NA LIMITATIONS: none FINDINGS: LUNGS AND PLEURA: Mild hyperinflation and increased AP diameter of the thorax. No focal c onsolidation, pleural effusion or pneumothorax. MEDIASTINUM AND HILAR STRUCTURES: No masses or contour abnormalities. HEART AND VASCULAR STRUCTURES: Normal heart size. Vascular calcifications. BONES: No acute findings. HARDWARE: None in the chest. OTHER: No other significant finding. IMPRESSION: No focal airspace disease or other evidence of acute intrathoracic process. TECHNICAL DOCUMENTATION: JOB ID: [id number] 2010 [employer]- All Rights Reserved Reading location - IP/workstation name: [email or web address]
== END ==
LOC: WI 14:06
PROVIDERS: ATTEND Physician Assistant
DX: Z12.31 Encounter for screening mammogram for malignant neoplasm of breast (principal); R05 Cough
CPT/HCPCS: 71046; 77063; 77067

== ENCOUNTER → 2020-02-22 | Outpatient (CLI) | payer MEDICAID, MEDICARE ==
[2020-02-22 15:12] LABS: ABSOLUTE EOSINOPHILS # (AUTO) 0.2 10^3/uL (0.0-0.6); ABSOLUTE LYMPHOCYTES (AUTO) 2.5 10^3/uL (0.5-4.7); ABSOLUTE MONOCYTES (AUTO) 0.7 10^3/uL (0.1-1.4); ABSOLUTE NEUT (AUTO) 3.9 10^3/uL (1.7-8.2); BASOPHILS % (AUTO) 0.6 % (0-2); EOSINOPHILS % (AUTO) 2.1 % (0-6); HEMATOCRIT 42.7 % (36.0-47.0); HEMOGLOBIN 14.3 g/dL (12.0-15.5); LYMPHOCYTES % (AUTO) 34.1 % (13-45); MEAN CORPUSCULAR HEMOGLOBIN 32.3 pg (27.0-33.4); MEAN CORPUSCULAR HGB CONC 33.5 g/dL (32.0-36.0); MEAN CORPUSCULAR VOLUME 96 fl (80-97); PLATELET COUNT 205 10^3/uL (150-450); RED BLOOD COUNT 4.43 10^6/uL (3.72-5.28); RED CELL DISTRIBUTION WIDTH 14.2 % (11.5-14.0); SEGMENTED NEUTROPHILS % (AUTO) 53.2 % (42-78); TOTAL CELLS COUNTED % (AUTO) 100 %; WHITE BLOOD COUNT 7.3 10^3/uL (4.0-10.5)
[2020-02-22 15:32] LABS: INTERNATIONAL RATION (INR) 0.87; PARTIAL THROMBOPLASTIN TIME 26.5 SEC (23.5-35.8); PROTHROMBIN TIME 12.1 SEC (11.4-15.4)
[2020-02-22 15:39] LABS: APPEARANCE,URINE SLIGHTLY-CLOUDY; BILIRUBIN,URINE NEGATIVE (NEGATIVE); COLOR,URINE YELLOW; GLUCOSE, URINE NEGATIVE (NEGATIVE); KETONES,URINE NEGATIVE (NEGATIVE); LEUKOCYTE ESTERASE,URINE TRACE (NEGATIVE); NITRITE,URINE NEGATIVE (NEGATIVE); PROTEIN,URINE 30 mg/dL (NEGATIVE); URINE SPECIFIC GRAVITY 1.021; UROBILINOGEN,URINE NEGATIVE mg/dL (<2.0)
== END ==
LOC: OD 13:37
PROVIDERS: ATTEND Pain Medicine Interventional Pain Medicine
DX: G89.4 Chronic pain syndrome (principal); Z79.01 Long term (current) use of anticoagulants; Z79.899 Other long term (current) drug therapy
CPT/HCPCS: 36415; 81001; 85025; 85610; 85730

== ENCOUNTER → 2020-03-11 | Outpatient (CLI) | payer MEDICAID, MEDICARE ==
--- NOTE | 2020-03-11 15:07 | WOMENS IMAGING REPORT ---
EXAM DESCRIPTION: BONE DENSITY HIP/SPINE IMAGES COMPLETED DATE/TIME: 03/11/2020 2:16 pm REASON FOR STUDY: Z78.0 ASYMPTOMATIC MENOPAUSAL STATE Z78.0 ASYMPTOMATIC MENOPAUSAL STATE COMPARISON: 07/07/2016 07/15/2009 TECHNIQUE: Dual-Energy X-ray Absorptiometry (DEXA) of the AP Spine and Hip. LIMITATIONS: None. FINDINGS: LUMBAR SPINE: The bone mineral density (BMD) measured from L1-L4 in the AP projection correlates with a T-score of -1.2, which is osteopenia as defined by the World Health Organization. BMD Change vs Baseline: +4.6% HIP: The bone mineral density (BMD) measured in the left hip correlates with a T-score of -1.6 in the femo ral neck, which is osteopenia as defined by the World Health Organization. BMD Change vs Baseline: +1.7% 10 year Fracture Risk Assessment: Major Osteoporotic Fracture: Not available. Hip Fracture: Not available. IMPRESSION: 1. LUMBAR SPINE WHO CLASSIFICATION: OSTEOPENIA. 2. HIP WHO CLASSIFICATION: OSTEOPENIA. OVERALL ASSESSMENT: WHO CLASSIFICATION: OSTEOPENIA. COMMENT: The World Health Organization defines low BMD as follows: T-score: Normal: At or above -1.0 Osteopenia: Between -1.0 and -2.5 Osteoporosis: At or below -2.5 without fractures Established osteoporosis: At or below -2.5 with fractures In general, you may wish to consider: Diagnosis Treatment Follow-up DEXA Normal BMD Prevention 2-3 years Osteopenia Prevention/Therapy 1-2 years Osteoporosis Therapy Yearly TECHNICAL DOCUMENTATION: JOB ID: [id number] 2010 [employer]- All Rights Reserved Reading location - IP/workstation name: [email or web address]
== END ==
LOC: WI 13:59
PROVIDERS: ATTEND Physician Assistant Medical
DX: Z78.0 Asymptomatic menopausal state (principal)
CPT/HCPCS: 77080

== ENCOUNTER → 2020-03-18 | Outpatient (CLI) | payer MEDICAID, MEDICARE ==
--- NOTE | 2020-03-18 16:42 | RADIOLOGY REPORT (SQ) ---
EXAM DESCRIPTION: MRI THORACIC SPINE WITHOUT IMAGES COMPLETED DATE/TIME: 03/18/2020 4:18 pm REASON FOR STUDY: (M51.36)OTHER INTERVERTEBRAL DISC DEGENERATION, LUMBAR REGION M54.2 CERVICALGIA M 51.36 OTHER INTERVERTEBRAL DISC DEGENERATION, LUMBAR REGION M54.5 LOW BACK PAIN COMPARISON: None. TECHNIQUE: Sagittal and Axial imaging includes T1, T2, STIR and gradient echo sequences. LIMITATIONS: None. FINDINGS: LOCALIZER: No worrisome findings. ALIGNMENT: Normal. VERTEBRAE: Intact. BONE MARROW: Normal. No marrow replacement or reactive changes. HARDWARE: None in the spine. CORD: Normal in size and signal intensity. SOFT TISSUES: No soft tissue masses. THORACIC DISCS T1-T12: No significant spinal stenosis or exit foraminal stenosis. LOWER CERVICAL: Incompletely imaged. No significant spinal stenosis or exit foraminal stenosis. UPPER LUMBAR: Incompletely imaged. No significant spinal stenosis or exit foraminal stenosis. OTHER: No other significant finding. IMPRESSION: NORMAL MRI THORACIC SPINE. TECHNICAL DOCUMENTATION: JOB ID: [id number] 2010 [employer]- All Rights Reserved Reading location - IP/workstation name: [email or web address]
== END ==
LOC: RAD 15:34
PROVIDERS: ATTEND Nurse Practitioner Family
DX: M51.36 Other intervertebral disc degeneration, lumbar region (principal); M47.892 Other spondylosis, cervical region
CPT/HCPCS: 72146

== ENCOUNTER → 2020-04-17 | Outpatient (CLI) | payer MEDICARE ==
--- NOTE | 2020-04-17 12:30 | RADIOLOGY REPORT (SQ) ---
EXAM DESCRIPTION: MRI CERVICAL SPINE WITHOUT IMAGES COMPLETED DATE/TIME: 04/17/2020 11:09 am REASON FOR STUDY: (M51.36)OTHER INTERVERTEBRAL DISC DEGENERATION, LUMBAR REGION M51.36 OTHER INTERV ERTEBRAL DISC DEGENERATION, LUMBAR REGION M54.2 CERVICALGIA COMPARISON: None. TECHNIQUE: Sagittal and Axial imaging includes T1, T2, STIR and gradient echo sequences. LIMITATIONS: None. FINDINGS: ALIGNMENT: Mild anterolisthesis of C4 on C5. VERTEBRAE: Intact. BONE MARROW: Normal. No marrow replacement or reactive changes. DISCS: Normal. No significant abnormal signal or loss of height. HARDWARE: None in the spine. CORD AND BASE OF BRAIN: Normal in size and signal intensity. SOFT TISSUES: No soft tissue masses. C1-C2: No significant spinal stenosis. C2-C3: No significant spinal stenosis or exit foraminal stenosis. C3-C4: Shallow midline disc/ osteophyte complex. No central canal or foraminal stenosis. C4-C5: Midline disc/ osteophyte complex narrows the anterior CSF space. No foraminal stenosis. C5-C6: Disc/osteophyte complex slightly flattens the right side of the spinal cord. No foraminal jerica nosis. C6-C7: No significant spinal stenosis or exit foraminal stenosis. C7-T1: No significant spinal stenosis or exit foraminal stenosis. UPPER THORACIC: Incompletely imaged. No significant spinal stenosis or exit foraminal stenosis. OTHER: No other significant finding. IMPRESSION: Mild anterolisthesis of C4 on C5. Mild disc changes at 3 levels. The most significant finding is at C5-6 where there is slight flattening of the right side of the cord. TECHNICAL DOCUMENTATION: JOB ID: [id number] [employer]- All Rights Reserved Reading location - IP/workstation name: [email or web address]
== END ==
LOC: RAD 10:30
PROVIDERS: ATTEND Nurse Practitioner Family
DX: M51.36 Other intervertebral disc degeneration, lumbar region (principal); M54.2 Cervicalgia
CPT/HCPCS: 72141